=== PATIENT | female | born 1960 | race Caucasian/White ===

== ENCOUNTER 2016-11-01 08:48 | Day surgery (SDC) | payer SELFPAY ==
[~2016-11-01] VITALS: Ht 165.1 cm; Wt 70.0 kg
--- NOTE | 2016-11-02 08:35 | OR ---
ADMIT: 11/01/2016 RM/LOC: [facility] MR#: [id number] [address] MONT[place] RENTERIA [address] [id number] Operative/Delivery Room Report SEX: F AGE: 56 : 1960 SURGERY DATE: 11/01/2016 SURGEON: Amaya Hebert MD DIRECTOR FINANCIAL ANALYSIS: None. PREPROCEDURE DIAGNOSES: 1. Right sacroiliac joint dysfunction. 2. Chronic low back pain. POSTPROCEDURE DIAGNOSES: 1. Right sacroiliac joint dysfunction. 2. Chronic low back pain. PROCEDURE PERFORMED: Right sacroiliac joint injection. INDICATIONS FOR PROCEDURE: The patient is a pleasant female with history of chronic right-sided hip pain secondary to above-mentioned diagnoses comes here for planned right-sided SI joint injection. ANESTHESIA: Local without sedation. ESTIMATED BLOOD LOSS: Zero. COMPLICATIONS: None immediately evident. DESCRIPTION OF PROCEDURE: After the patient was seen in the preoperative area, vitals signs were taken. Prior to the procedure, the risks, benefits, and alternative therapies were discussed at length. Patient consent was obtained and updated. The patient was taken to the fluoroscopy suite and placed on the fluoroscopy table in the prone position. Pressure points were padded to comfort, monitors applied, and a timeout performed. C-arm was brought in to identify the right SI joint. Lidocaine plain 1%, approximately 2 mL, was used to anesthetize the skin and underlying subcutaneous tissue. A 3.5-inch 22-gauge curved-tip needle was then advanced ADMIT: 11/01/2016 RM/LOC: [facility] MR#: [id number] [address] MYRA, MONTRELL L [address] [place] [id number] Operative/Delivery Room Report SEX: F AGE: 56 : 1960 through the anesthetized skin and placed inside the inferior portion of the SI joint. Isovue-300 was injected into the SI joint and showed good spread into the SI joint. After correct placement was confirmed, 5 mL of 0.25% Marcaine and 80 mg of methylprednisolone were injected. The patient tolerated the procedure well without any complications. The patient was then brought to PACU where she recovered nicely. PLAN: The patient was examined after 20 minutes and had 80% reduction of pain. Discharge instructions were given, followup scheduled. 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 Amaya Hebert MD/ alfredo JOB #: [id number] CC: Amaya Hebert, Attending Physician Louis Akers, Family Physician
== END 2016-11-01 10:32 | disposition home or self-care (01) ==
LOC: SSS 08:48
PROC: 3E0U33Z Introduction of Anti-inflammatory into Joints, Percutaneous Approach (ICD-10-PCS; principal; 2016-11-01)
PROC: 3E0U3BZ Introduction of Anesthetic Agent into Joints, Percutaneous Approach (ICD-10-PCS; principal; 2016-11-01)
DX: G89.29 Other chronic pain (principal); M53.3 Sacrococcygeal disorders, not elsewhere classified; M47.27 Other spondylosis with radiculopathy, lumbosacral region; E78.5 Hyperlipidemia, unspecified; F17.200 Nicotine dependence, unspecified, uncomplicated; Z88.1 Allergy status to other antibiotic agents; Z79.899 Other long term (current) drug therapy